=== PATIENT | male | born 1960 | race Caucasian/White ===

== ENCOUNTER 2018-07-12 20:31 | Emergency (ER) | payer MEDICAID ==
[~2018-07-12] VITALS: Ht 182.9 cm; Wt 127.3 kg
[2018-07-12 20:36] VITALS: Ht 182.9 cm; Wt 127.3 kg
[2018-07-12] MEDS ORDERED: CELEXA20 MG PO (20:46)
[2018-07-12] MEDS ORDERED: NORVASC10 MG PO (20:46)
[2018-07-12] MEDS ORDERED: CATAPRES TTS-20.2 MG TD (20:47)
[2018-07-12] MEDS ORDERED: ZESTRIL20 MG PO (20:48)
[2018-07-12] MEDS ORDERED: LASIX40 MG PO (20:48)
[2018-07-12] MEDS ORDERED: LIPITOR80 MG PO (20:48)
[2018-07-12] MEDS ORDERED: LANTUS INSULIN10 ML SC (20:48)
[2018-07-12 21:40] LABS: BASOPHILS 0.4 % (0-2); EOSINOPHILS 2.2 % (0-7); HEMATOCRIT 36.6 % (42.0-54.0); HEMOGLOBIN 11.9 g/dL (13.5-17.5); IMMATURE GRANULOCYTES 1.2 % (0-5); LYMPHOCYTES 13.3 % (15-50); MCH 28.7 pg (26.0-34.0); MCHC 32.5 g/dL (31.0-37.0); MCV 88.4 fL (80.0-100.0); MEAN PLATELET VOLUME 11.4 fL (7.4-10.4); MONOCYTES 7.3 % (2-11); NEUTROPHILS 75.6 % (40-80); PLATELET COUNT 398 10x3/uL (130-400); RBC 4.14 10x6/uL (4.20-6.10); RDW 12.6 % (11.5-14.5); WBC 19.6 10x3/uL (4.8-10.8)
[2018-07-12 22:01] LABS: ALKALINE PHOSPHATASE 165 U/L (46-116); ALT (SGPT) 49 U/L (10-68); BILIRUBIN - TOTAL 0.67 mg/dL (0.2-1.3); CALC OSMOLALITY 278 mosm/kg (275-300); CALCIUM 8.9 mg/dL (8.5-10.1); CARBON DIOXIDE 29.6 mmol/L (21.0-32.0); CHLORIDE - SERUM 97 mmol/L (98-107); CREATININE - SERUM 0.7 mg/dL (0.6-1.3); GLUCOSE 272 mg/dL (74-106); POTASSIUM - SERUM 4.7 mmol/L (3.5-5.1); PROTEIN - SERUM 7.8 g/dL (6.4-8.2); SODIUM 133 mmol/L (136-145); UREA NITROGEN 21 mg/dL (7-18); eGFR NON AFRICAN AMERICAN > 90 mL/min (90-120)
[2018-07-12 22:03] LABS: ALBUMIN 2.2 g/dL (3.4-5.0)
[2018-07-12 22:26] LABS: APPEARANCE CLEAR (CLEAR); BACTERIA MANY /hpf (NONE SEEN); BILIRUBIN NEGATIVE (NEGATIVE); COLOR YELLOW (YELLOW); GLUCOSE NEGATIVE (NEGATIVE); KETONE NEGATIVE (NEGATIVE); NITRITE NEGATIVE (NEGATIVE); PROTEIN TRACE mg/dL (NEGATIVE); RED CELLS - URINE 0-5 /hpf (0-5); SPECIFIC GRAVITY 1.025 (1.005-1.020); UROBILINOGEN NORMAL (NORMAL); WHITE CELLS - URINE 0-5 /hpf (0-5)
[2018-07-13] MEDS ORDERED: LEVOFLOXACIN500 MG PEG (00:32)
[2018-07-13 01:44] VITALS: BP 170/98
== END 2018-07-13 01:45 | disposition home or self-care (01) ==
LOC: D.ER 20:31
PROVIDERS: Family Medicine
DX: D72.829 Elevated white blood cell count, unspecified (principal); E11.9 Type 2 diabetes mellitus without complications; Z86.73 Personal history of transient ischemic attack (TIA), and cerebral infarction without residual deficits; I10 Essential (primary) hypertension